=== PATIENT | male | born 1990 | race Caucasian/White ===

== ENCOUNTER 2022-02-18 17:56 | Emergency (ER) | payer OTHER ==
[~2022-02-18] VITALS: Ht 190.5 cm; Wt 83.9 kg
[~2022-02-18 17:56] MED LIST: IBUP800 PO; Ultram50 MG PO
[2022-02-18] MEDS ORDERED: CEPH500 PO (20:55)
== END 2022-02-18 21:06 | disposition home or self-care (01) ==
LOC: ER 17:56
DX: S62.522B Displaced fracture of distal phalanx of left thumb, initial encounter for open fracture (principal); W31.2XXA Contact with powered woodworking and forming machines, initial encounter; Y99.0 Civilian activity done for income or pay; F17.210 Nicotine dependence, cigarettes, uncomplicated; Z79.899 Other long term (current) drug therapy; Z23 Encounter for immunization
CPT/HCPCS: 73130; 90714

== ENCOUNTER 2022-02-19 16:35 | Emergency (ER) | payer OTHER ==
[~2022-02-19] VITALS: Ht 190.5 cm; Wt 83.9 kg
[~2022-02-19 16:35] MED LIST changes: +CEPH500 PO
== END 2022-02-19 16:58 | disposition home or self-care (01) ==
LOC: ER 16:35
DX: Z02.79 Encounter for issue of other medical certificate (principal); F17.210 Nicotine dependence, cigarettes, uncomplicated; Z79.899 Other long term (current) drug therapy
CPT/HCPCS: 99281